=== PATIENT | male | born 1965 | race African-American/Black ===

== ENCOUNTER 2020-08-14 20:47 | Emergency (ER) | payer OTHER ==
[~2020-08-14] VITALS: Ht 175.3 cm; Wt 65.9 kg
[2020-08-14] MEDS ORDERED: LISI-894 PO (21:00)
[2020-08-14] MEDS ORDERED: METO25 PO (21:00)
[2020-08-14] MEDS ORDERED: KETOROLAC TROMETHAMINE 30 MG/ML VIAL IM ONE (22:15)
[2020-08-15 00:29] VITALS: BP 130/71
== END 2020-08-15 01:41 | disposition home or self-care (01) ==
LOC: EMS 20:47
DX: S82.142A Displaced bicondylar fracture of left tibia, initial encounter for closed fracture (principal); M25.062 Hemarthrosis, left knee; I10 Essential (primary) hypertension; Z79.899 Other long term (current) drug therapy; W10.9XXA Fall (on) (from) unspecified stairs and steps, initial encounter; Y93.01 Activity, walking, marching and hiking; Y92.89 Other specified places as the place of occurrence of the external cause; Y99.8 Other external cause status
CPT/HCPCS: 73552; 73564; 73590; 73700; 96372; 99284; J1885

== ENCOUNTER → 2020-10-22 | Outpatient (CLI) | payer OTHER ==
[~2020-10-22] MED LIST: LIDOCAINE 2% 5 ML JELLY TP ONE; LISI-894 PO; METO25 PO
== END | disposition home or self-care (01) ==
LOC: HBOWC 09:10
PROVIDERS: ATTEND Surgery Plastic and Reconstructive Surgery
DX: T81.31XA Disruption of external operation (surgical) wound, not elsewhere classified, initial encounter (principal); S81.802A Unspecified open wound, left lower leg, initial encounter; I10 Essential (primary) hypertension; M45.9 Ankylosing spondylitis of unspecified sites in spine; R26.9 Unspecified abnormalities of gait and mobility; Z79.82 Long term (current) use of aspirin; X58.XXXA Exposure to other specified factors, initial encounter; Y93.89 Activity, other specified; Y92.89 Other specified places as the place of occurrence of the external cause; Y99.8 Other external cause status; Y83.8 Other surgical procedures as the cause of abnormal reaction of the patient, or of later complication, without mention of misadventure at the time of the procedure; Y92.238 Other place in hospital as the place of occurrence of the external cause
CPT/HCPCS: 11043; G0463; 99205